=== PATIENT | female | born 1975 | race African-American/Black ===

== ENCOUNTER 2016-03-15 15:36 | Emergency (ER) | payer OTHER ==
[~2016-03-15] VITALS: Ht 170.2 cm; Wt 82.1 kg
--- NOTE | ~2016-03-15 | EKG ---
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 : 1975 Requested By: Reji Lenz Order Number: [id number] MD: Woodrow Rivero Measurements Intervals [place] Rate: 61 P: 13 NV: 173 QRS: 8 QRSD: 85 T: -2 QT: 381 QTc: 384 Interpretive Statements Sinus rhythm Abnormal R-wave progression, early transition Borderline T abnormalities, inferior leads No previous ECG available for comparison Electronically Signed On 03-16-2016 9:28:35 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
[~2016-03-15 15:36] MED LIST: BACTRIM 400-801 EACH; BACTRIM DS TAB1 EACH PO; HYDROCODONE-AP1 EAC6 PO; PERIDEX 0.12%473 M1 TP; POTASSIUM20 PO; TEMAZEPAM15 MG PO; TRAMADOL 50 MG50 MG; TYLENOL325 MG PO; UNICOMPLEX M TA1 TA1 PO; VITAMINC500 PO; ZYVOX600 MG PO
[2016-03-15] MEDS ORDERED: CLONIDINE HCL0.1 MG PO (15:42)
[2016-03-15 16:12] LABS: ABSOLUTE NEUTROPHILS 2.6 thou/uL (1.4-8.2); BASOPHILS 1.5 % (0.0-2.0); EOSINOPHILS 3.9 % (0.0-3.0); HEMATOCRIT 35.5 % (37.0-47.0); HEMOGLOBIN 11.7 gm/dL (12.0-15.0); LYMPHOCYTES 43.4 % (24.0-44.0); MCH 27.3 pg (26.0-34.0); MCHC 32.9 % (28.0-37.0); MCV 82.8 fL (80.0-100.0); MONOCYTES 6.8 % (1.0-8.0); PLATELET COUNT 357 thou/uL (150-400); POLYS 44.4 % (36.0-66.0); RBC 4.28 mil/uL (4.20-5.00); RDW 14.1 % (10.5-14.5); WBC 5.8 thou/uL (4.0-11.0)
[2016-03-15 16:13] LABS: MANUAL DIFF NO
[2016-03-15 16:33] LABS: ANION GAP 7 mmol/L (7-16); BUN 9 mg/dL (7-18); CHLORIDE 101 mmol/L (98-107); CO2 28 mmol/L (21-32); CREATININE 0.7 mg/dL (0.6-1.3); GLUCOSE 88 mg/dL (70-99); POTASSIUM 3.5 mmol/L (3.5-5.1); SODIUM 136 mmol/L (136-145)
[2016-03-15 16:36] LABS: NT-PRO BRAIN NAT PEPTIDE 94 pg/mL (<300); TROPONIN-I < 0.04 ng/mL (<0.04-0.07)
[2016-03-27] MEDS ORDERED: CORICIDIN HBP1 EACH PO (16:10)
[2016-03-27] MEDS ORDERED: AFRIN15 ML NS (16:10)
[2016-05-03] MEDS ORDERED: PREDNISONE 20 M20 MG PO (23:18)
== END 2016-03-15 17:23 | disposition home or self-care (01) ==
LOC: ER 15:36
PROVIDERS: Nurse Practitioner
DX: I10 Essential (primary) hypertension (principal); R07.89 Other chest pain; Z88.5 Allergy status to narcotic agent; Z88.8 Allergy status to other drugs, medicaments and biological substances

== ENCOUNTER 2016-05-30 00:36 | Emergency (ER) | payer OTHER ==
[~2016-05-30] VITALS: Ht 170.2 cm; Wt 89.4 kg
[~2016-05-30 00:36] MED LIST changes: +AFRIN15 ML NS; +CLONIDINE HCL0.1 MG PO; +CORICIDIN HBP1 EACH PO; +PREDNISONE 20 M20 MG PO
[2016-05-30 00:53] LABS: URINE BILIRUBIN NEGATIVE (Negative); URINE BLOOD TRACE (Negative); URINE COLOR YELLOW; URINE GLUCOSE-RANDOM* NEGATIVE (Negative); URINE KETONES TRACE (Negative); URINE NITRITE NEGATIVE (Negative); URINE PROTEIN (DIPSTICK) NEGATIVE (Negative); URINE SPECIFIC GRAVITY >= 1.030 (1.003-1.035); URINE UROBILINOGEN 0.2 E.U./dl (0.2-1.0)
[2016-05-30] MEDS ORDERED: DOXYCYCLINE 10100 MG PO (01:12)
== END 2016-05-30 01:26 | disposition home or self-care (01) ==
LOC: ER 00:36
PROVIDERS: Emergency Medicine
DX: N34.2 Other urethritis (principal); I10 Essential (primary) hypertension; Z88.5 Allergy status to narcotic agent; Z88.8 Allergy status to other drugs, medicaments and biological substances

== ENCOUNTER 2016-09-03 18:17 | Emergency (ER) | payer OTHER ==
[~2016-09-03] VITALS: Ht 170.1 cm; Wt 107.3 kg
[~2016-09-03 18:17] MED LIST changes: +DOXYCYCLINE 10100 MG PO; +KEFLEX500 MG PO; +NORCO 5-325 TA1 EACH PO
[2016-09-03] MEDS ORDERED: PREDNISONE 20 M20 M1 PO (18:44)
[2016-09-03 19:26] LABS: URINE BILIRUBIN NEGATIVE (Negative); URINE BLOOD 3+ (Negative); URINE COLOR YELLOW; URINE GLUCOSE-RANDOM* NEGATIVE (Negative); URINE KETONES NEGATIVE (Negative); URINE NITRITE NEGATIVE (Negative); URINE PROTEIN (DIPSTICK) TRACE (Negative); URINE SPECIFIC GRAVITY 1.025 (1.003-1.035)
[2016-09-03 19:33] LABS: BACTERIA 1-9 Few /HPF (None Seen); SQUAMOUS 0-3 Few /LPF (0-3); URINE RBC >20 Many /HPF (0-2)
[2016-09-03 19:34] LABS: CASTS None Seen /LPF (None Seen); URINE WBC 0-5 Rare /HPF (0-5)
[2016-09-03 19:38] LABS: CRYSTALS None Seen /LPF (None Seen)
== END 2016-09-03 19:58 | disposition home or self-care (01) ==
LOC: ER 18:17
PROVIDERS: Emergency Medicine
DX: M54.5 Low back pain (principal); M10.071 Idiopathic gout, right ankle and foot; I10 Essential (primary) hypertension; Z88.5 Allergy status to narcotic agent; Z88.8 Allergy status to other drugs, medicaments and biological substances

== ENCOUNTER 2017-01-12 20:09 | Emergency (ER) | payer OTHER ==
[~2017-01-12] VITALS: Ht 170.2 cm; Wt 86.2 kg
[~2017-01-12 20:09] MED LIST changes: +PREDNISONE 20 M20 M1 PO; +PROTONIX40 M1 PO
[2017-01-12] MEDS ORDERED: IBUPROFEN 800800 M1 PO (21:07)
[2017-01-12] MEDS ORDERED: CLARITIN-D 121 EAC1 PO (21:07)
[2017-01-12] MEDS ORDERED: TESSALON PERLE100 MG PO (21:07)
== END 2017-01-12 21:38 | disposition home or self-care (01) ==
LOC: ER 20:09
DX: J06.9 Acute upper respiratory infection, unspecified (principal); I10 Essential (primary) hypertension; Z88.5 Allergy status to narcotic agent; Z88.8 Allergy status to other drugs, medicaments and biological substances

== ENCOUNTER 2017-03-05 00:04 | Emergency (ER) | payer OTHER ==
[~2017-03-05] VITALS: Ht 170.2 cm; Wt 81.7 kg
--- NOTE | ~2017-03-05 | EKG ---
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 : 1975 Requested By: Sofia Jane Order Number: [id number] MD: Woodrow Rivero Measurements Intervals [place] Rate: 82 P: 46 [place]: 180 QRS: 15 QRSD: 80 T: -3 QT: 360 QTc: 421 Interpretive Statements Sinus rhythm Normal tracing Compared to ECG 12/27/2016 18:07:22 No significant changes Electronically Signed On 03-05-2017 9:06:21 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
[~2017-03-05 00:04] MED LIST changes: +CLARITIN-D 121 EAC1 PO; +IBUPROFEN 800800 M1 PO; +TESSALON PERLE100 MG PO
[2017-03-05] MEDS ORDERED: PRILOSEC 10MG C10 MG PO (00:19)
[2017-03-05 00:21] LABS: BASOPHILS 0.8 % (0.0-2.0); EOSINOPHILS 3.6 % (0.0-3.0); HEMATOCRIT 32.5 % (37.0-47.0); LYMPHOCYTES 43.7 % (24.0-44.0); MCH 27.7 pg (26.0-34.0); MCHC 33.7 g/dL (28.0-37.0); MCV 82.1 fL (80.0-100.0); MONOCYTES 6.9 % (1.0-8.0); PLATELET COUNT 301 thou/uL (150-400); RBC 3.96 mil/uL (4.20-5.00); RDW 14.6 % (10.5-14.5); WBC 6.7 thou/uL (4.0-11.0)
[2017-03-05 00:30] LABS: ANION GAP 9 mmol/L (7-16); BUN 10 mg/dL (7-18); CALCIUM 8.5 mg/dL (8.5-10.1); CHLORIDE 102 mmol/L (98-107); CO2 28 mmol/L (21-32); CREATININE 0.7 mg/dL (0.6-1.0); GLUCOSE 100 mg/dL (74-106); POTASSIUM 3.6 mmol/L (3.5-5.1); SODIUM 139 mmol/L (136-145)
[2017-03-05 00:41] LABS: TROPONIN-I < 0.04 ng/mL (<0.06)
[2017-03-05 02:30] VITALS: BP 123/82
[2017-06-21] MEDS ORDERED: ZANTAC 150MG T150 MG PO (21:39)
[2017-06-21] MEDS ORDERED: NORCO 5-325 TA1 EACH PO (22:04)
[2017-08-19] MEDS ORDERED: NAPROSYN500 MG PO (02:34)
[2017-09-25] MEDS ORDERED: IBUPROFEN 600600 M1 PO (23:35)
== END 2017-03-05 02:30 | disposition home or self-care (01) ==
LOC: ER 00:04
PROVIDERS: Emergency Medicine
DX: R07.89 Other chest pain (principal); I10 Essential (primary) hypertension; Z88.5 Allergy status to narcotic agent; Z88.8 Allergy status to other drugs, medicaments and biological substances

== ENCOUNTER 2017-06-06 13:47 | Emergency (ER) | payer OTHER ==
[~2017-06-06] VITALS: Ht 170.2 cm; Wt 88.9 kg
[~2017-06-06 13:47] MED LIST changes: +PRILOSEC 10MG C10 MG PO
[2017-06-06] MEDS ORDERED: IBUPROFEN 600600 M1 PO (15:38)
== END 2017-06-06 15:43 | disposition home or self-care (01) ==
LOC: ER 13:47
DX: S90.02XA Contusion of left ankle, initial encounter (principal); R07.81 Pleurodynia; I10 Essential (primary) hypertension; Z88.5 Allergy status to narcotic agent; X58.XXXA Exposure to other specified factors, initial encounter; Y93.89 Activity, other specified; Y92.89 Other specified places as the place of occurrence of the external cause; Y99.8 Other external cause status

== ENCOUNTER 2017-09-08 12:04 | Emergency (ER) | payer OTHER ==
[~2017-09-08] VITALS: Ht 170.2 cm; Wt 101.2 kg
[~2017-09-08 12:04] MED LIST changes: +IBUPROFEN 600600 M1 PO; +NAPROSYN500 MG PO; +ZANTAC 150MG T150 MG PO
[2017-09-08 12:21] LABS: URINE BILIRUBIN NEGATIVE (Negative); URINE BLOOD TRACE (Negative); URINE CLARITY CLEAR; URINE COLOR YELLOW; URINE GLUCOSE-RANDOM* NEGATIVE (Negative); URINE KETONES NEGATIVE (Negative); URINE LEUKOCYTES-REFLEX NEGATIVE (Negative); URINE NITRITE-REFLEX NEGATIVE (Negative); URINE PROTEIN (DIPSTICK) NEGATIVE (Negative); URINE SPECIFIC GRAVITY 1.025 (1.005-1.035); URINE UROBILINOGEN 0.2 E.U./dl (0.2-1.0)
[2017-09-08 12:50] LABS: CASTS None Seen /LPF (None Seen); SQUAMOUS 0-3 Few /LPF (0-3)
[2017-09-08 12:51] LABS: BACTERIA 1-9 Few /HPF (None Seen); URINE RBC 0-2 Rare /HPF (0-2); URINE WBC None Seen /HPF (0-5)
[2017-09-08] MEDS ORDERED: KEFLEX500 M1 PO (12:51)
== END 2017-09-08 12:56 | disposition home or self-care (01) ==
LOC: ER 12:04
PROVIDERS: Emergency Medicine
DX: N39.0 Urinary tract infection, site not specified (principal); I10 Essential (primary) hypertension; Z88.5 Allergy status to narcotic agent; Z88.8 Allergy status to other drugs, medicaments and biological substances

== ENCOUNTER 2018-07-09 15:24 | Emergency (ER) | payer OTHER ==
[~2018-07-09] VITALS: Ht 170.2 cm; Wt 82.1 kg
[~2018-07-09 15:24] MED LIST changes: +KEFLEX500 M1 PO
[2018-07-09 15:49] LABS: URINE BILIRUBIN NEGATIVE (Negative); URINE BLOOD TRACE (Negative); URINE CLARITY CLEAR; URINE COLOR YELLOW; URINE GLUCOSE-RANDOM* NEGATIVE (Negative); URINE KETONES NEGATIVE (Negative); URINE LEUKOCYTES NEGATIVE (Negative); URINE NITRITE NEGATIVE (Negative); URINE PROTEIN (DIPSTICK) NEGATIVE (Negative); URINE SPECIFIC GRAVITY 1.015 (1.005-1.035); URINE UROBILINOGEN 0.2 E.U./dl (0.2-1.0)
== END 2018-07-09 16:30 | disposition home or self-care (01) ==
LOC: ER 15:24
PROVIDERS: Emergency Medicine
DX: R35.0 Frequency of micturition (principal); I10 Essential (primary) hypertension; Z98.51 Tubal ligation status; Z88.5 Allergy status to narcotic agent; Z88.8 Allergy status to other drugs, medicaments and biological substances

== ENCOUNTER 2018-12-06 22:33 | Emergency (ER) | payer OTHER ==
[~2018-12-06] VITALS: Ht 170.2 cm; Wt 103.9 kg
[2018-12-07] MEDS ORDERED: KEFLEX500 M1 PO (02:59)
[2018-12-07] MEDS ORDERED: MOBIC15 MG PO (02:59)
== END 2018-12-06 23:35 ==
LOC: ER 22:33
DX: Z53.21 Procedure and treatment not carried out due to patient leaving prior to being seen by health care provider (principal)

== ENCOUNTER 2018-12-07 02:30 | Emergency (ER) | payer OTHER ==
[~2018-12-07] VITALS: Ht 170.2 cm; Wt 105.2 kg
[2018-12-07] MEDS ORDERED: MOBIC15 MG PO (02:59)
[2018-12-07] MEDS ORDERED: KEFLEX500 M1 PO (02:59)
[2018-12-07 03:49] VITALS: BP 143/88
== END 2018-12-07 03:00 | disposition home or self-care (01) ==
LOC: ER 02:30
DX: L03.031 Cellulitis of right toe (principal); I10 Essential (primary) hypertension; Z88.5 Allergy status to narcotic agent; Z88.8 Allergy status to other drugs, medicaments and biological substances

== ENCOUNTER 2019-09-12 14:02 | Emergency (ER) | payer OTHER ==
[~2019-09-12] VITALS: Ht 170.2 cm; Wt 85.7 kg
[~2019-09-12 14:02] MED LIST changes: +MOBIC15 MG PO
[2019-09-12 15:25] LABS: HEMATOCRIT 34.2 % (37.0-47.0); HEMOGLOBIN 11.8 gm/dL (12.0-15.0); MCH 28.9 pg (26.0-34.0); MCHC 34.4 g/dL (28.0-37.0); MCV 84.1 fL (80.0-100.0); PLATELET COUNT 287 thou/uL (150-400); RBC 4.07 mil/uL (4.20-5.00); WBC 3.7 thou/uL (4.0-11.0)
[2019-09-12 15:36] LABS: CALCIUM 8.6 mg/dL (8.5-10.1); CREATININE 0.7 mg/dL (0.6-1.0); POTASSIUM 3.3 mmol/L (3.5-5.1)
[2019-09-12 15:42] LABS: ALBUMIN 3.4 g/dL (3.4-5.0); TOTAL BILIRUBIN 0.3 mg/dL (0.2-1.0); TOTAL PROTEIN 7.6 g/dL (6.4-8.2)
[2019-09-12 16:03] LABS: ABSOLUTE NEUTROPHILS 2.1 thou/uL (1.4-8.2); ANISOCYTOSIS 1+
[2019-09-12 17:14] LABS: URINE BILIRUBIN NEGATIVE (Negative); URINE BLOOD 1+ (Negative); URINE CLARITY CLEAR; URINE COLOR YELLOW; URINE GLUCOSE-RANDOM* NEGATIVE (Negative); URINE KETONES NEGATIVE (Negative); URINE LEUKOCYTES-REFLEX NEGATIVE (Negative); URINE NITRITE-REFLEX NEGATIVE (Negative); URINE PROTEIN (DIPSTICK) NEGATIVE (Negative); URINE SPECIFIC GRAVITY <= 1.005 (1.005-1.035); URINE UROBILINOGEN 0.2 E.U./dl (0.2-1.0)
[2019-09-12 17:21] LABS: SQUAMOUS 0-3 Few /LPF (0-3)
[2019-09-12 17:22] LABS: BACTERIA-REFLEX None Seen /HPF (None Seen); CRYSTALS None Seen /LPF (None Seen); URINE RBC 0-2 Rare /HPF (0-2); URINE WBC-REFLEX None Seen /HPF (0-5)
[2019-09-12] MEDS ORDERED: BUTALB-APAP-CA1 EACH PO (17:29)
[2019-09-12 17:49] VITALS: BP 121/88
== END 2019-09-12 17:50 | disposition home or self-care (01) ==
LOC: ER 14:02
PROVIDERS: Nurse Practitioner Family
DX: M54.5 Low back pain (principal); G43.909 Migraine, unspecified, not intractable, without status migrainosus; I10 Essential (primary) hypertension; Z88.5 Allergy status to narcotic agent; Z88.8 Allergy status to other drugs, medicaments and biological substances; Z79.899 Other long term (current) drug therapy; Z98.51 Tubal ligation status

== ENCOUNTER 2020-07-03 22:24 | Emergency (ER) | payer OTHER ==
[~2020-07-03] VITALS: Ht 167.6 cm; Wt 85.7 kg
--- NOTE | ~2020-07-03 | EMS ---
[address] [address] EMS Patient Care Report Name: KAPIL MORGAN Room #: DEP Jg#: [id number] Admission: 07/03/20 Attend Phys: Discharge: 07/03/20 Date of : 75 Report #: [id number] THIS REPORT FOR: //name// Report Transmitted: 07/04/2020 23:01 EMS Care Summary [place], [place]/[facility] Incident [id number] @ 07/03/2020 21:45 Incident Location [address] [place] [address] Patient KAPIL MORGAN Female, 45 Years 1975 Patient Address [address] [place] [address] Patient History Hypertension (HTN),Anxiety, Patient Allergies Codeine,Topamax, Patient Medications Xanax, Tramadol, Chief Complaint lower back pain Disposition Transported No Lights/[place] Reason Sick Person Transported To [facility] Narrative found patient sitting on her bed chief complaint of non traumatic back pain patient stats she woke up with pain in morning. she was gray times 4 gcs 15 on arrival she as assisted to her feet and assisted to the ambulance. she denies any head neck and back pain chest pain nausea and vomiting, blurred or double [address] [address] EMS Patient Care Report Name: KAPIL MORGAN Room #: DEP [facility]#: [id number] Admission: 07/03/20 Attend Phys: Discharge: 07/03/20 Date of : 75 Report #: [id number] vision and sob patient was cooperative in route to hospital with stable vitals. she was taken to room where report was given to rn without incident. she was assisted to hospital bed where she was left caxo4 with a gcs of 15. Initial Vitals @22:28P: 80,R: 16,BP: 160/90,Pain: 6/10,GCS: 15,SpO2: 99,Revised Trauma: 12, @22:17P: 81,R: 18,BP: 151/90,Pain: 6/10,GCS: 15,SpO2: 99,Revised Trauma: 12, Assessments @22:04MENTAL:Person Oriented,Time Oriented,Event Oriented,Place Oriented,SKIN:HEENT:Eyes: Left Pupil: 4-mm,Eyes: Right Pupil: 4-mm,Head/Face: No Abnormalities,Neck/Airway: No Abnormalities,LUNG SOUNDS:General: No Abnormalities,ABDOMEN:General: No Abnormalities,PELVIS//GI:EXTREMITIES:Left Arm: No Abnormalities,Right Arm: No Abnormalities,Left Leg: No Abnormalities,Right Leg: No Abnormalities,PULSE:NEURO:No Abnormalities, Impression Acute Pain, not elsewhere classified Timeline 21:43,Call Received 21:43,Dispatch Notified 21:45,Dispatched 21:45,En Route 21:50,On Scene 21:53,At Patient 22:08,Depart Scene 22:17,BP: 151/90 M,PULSE: 81,RR: 18 R,SPO2: 99 Ox,ETCO2: ,BG: ,PAIN: 6,GCS: 15, 22:21,At Destination 22:28,BP: 160/90 M,PULSE: 80,RR: 16 R,SPO2: 99 Ox,ETCO2: ,BG: ,PAIN: 6,GCS: 15, 22:40,Call Closed Disclaimer [email or web address] Copyright 2020 [employer] This EMS Care Summary contains data elements from the applicable legal record (which may be displayed differently). It is designed to provide pertinent information for the following purposes: continuity of care, clinical quality, and state data reporting. The complete legal record is available to ED staff and administrators of the receiving hospital in [employer]'s Patient Tracker. All data is provided "as is."
[~2020-07-03 22:24] MED LIST changes: +BUTALB-APAP-CA1 EACH PO
[2020-07-03] MEDS ORDERED: NAPROSYN500 MG PO (23:47)
[2020-07-03] MEDS ORDERED: FLEXERIL PO (23:47)
[2020-07-03 23:59] VITALS: BP 148/105
== END 2020-07-03 23:59 | disposition home or self-care (01) ==
LOC: ER 22:24
DX: M54.5 Low back pain (principal); M62.830 Muscle spasm of back; I10 Essential (primary) hypertension; Z88.5 Allergy status to narcotic agent; Z88.8 Allergy status to other drugs, medicaments and biological substances; Z98.51 Tubal ligation status